=== PATIENT | male | born 1970 | race Caucasian/White ===

== ENCOUNTER 2017-07-31 06:36 | Day surgery (SDC) | payer MEDICARE ==
[2017-07-30 11:50] VITALS: BMI 38.2
[~2017-07-31 06:36] MED LIST: FLU VACC QS2017-18 36 mo. & older 0.5 ML SYRINGE IM ONE
[2017-07-31 08:03] VITALS: BP 142/90; TEMP 97.6
--- NOTE | 2017-07-31 08:54 | RAD ---
CERVICAL SPINE SERIES 4 VIEWS WITH FLEXION AND EXTENSION: HISTORY: Postop. FINDINGS: The patient has undergone anterior cervical fusion extending from C5 to C7 with plate and screws. Ma rkers of a disk implant are within the intervening disk levels. No abnormal motion is seen in flexio n or extension. IMPRESSION: Stable postop changes. POS: [facility]
--- NOTE | 2017-07-31 09:38 | RAD ---
CERVICAL MYELOGRAM: Date: 07/31/17 HISTORY: Cervical disc degeneration. COMPARISON: None. FLUORO TIME: 0.9 minutes. DOSE: 126.2 mGy*cm^2. 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 Disc prosthesis at C5-C6 and C6-C7 is noted. 2 view lumbar spine: Five lumbar-type vertebral bodies. Vertebral body height is maintained. There i s moderate loss of disc space height and vacuum disc phenomenon at L5-S1. Note, there are five lumbar -type vertebral bodies. There is partial sacralization of S1. Technically successful lumbar puncture for intrathecal contrast administration. A total of 9 mL Isovu e-300M contrast administered intrathecally. The patient tolerated the procedure well. No immediate or postprocedure complication. TECHNIQUE: Consent obtained for a lumbar puncture for cervical myelogram. The patient's back was evaluated. The L2-L3 level was deemed appropriate. Skin was prepped and draped in the sterile fashion. 1% lidocaine, buffered with sodium bicarbonate, was used for local anesthesia. Under fluoroscopic guidance, a 22 g auge spinal needle was advanced into the CSF space. Via a short tubing catheter, a total of 9 mL of I sovue-300M contrast was administered intrathecally. The patient tolerated the procedure well. No imme diate or postprocedure complication. IMPRESSION: Technically successful myelogram. POS: [facility]
--- NOTE | 2017-07-31 09:46 | CT ---
EXAM: CERVICAL SPINE MYELOGRAM CT: HISTORY: Cervical disk degeneration. Previous cervical fusion. COMPARISON: None. TECHNIQUE: Post myelogram cervical spine CT is performed in the axial plane. Reformatted images are submitted f or interpretation. FINDINGS: There is mild fullness of the left and right palatine tonsils, nonspecific. Visualized epiglottis is unremarkable. Preepiglottic fat is preserved. No prevertebral soft tissue swelling. Cervical spine vertebral body height is maintained. There is no fracture. Lateral masses of C1 and C2 articulate appropriate. Appropriate articulation of the facets. There is straightening of normal cervical lordosis. There is 1.3 mm of anterolisthesis of C3 upon C4. There are cervical fusion hardware changes at C5, C6, and C7. There are transvertebral body screws a t the aforementioned vertebral bodies. There are disk prostheses at C5-C6 and C6-C7. With regard to fusion hardware, no complication or loosening. C2-C3: No significant disk-osteophyte complex. No significant central canal stenosis. Neural benjamin en are patent. C3-C4: No significant disk-osteophyte complex. No significant central canal stenosis. Degenerative changes of bilateral uncovertebral joints result in moderate right and moderate to severe left benjamin inal narrowing. C4-5: Central disk-osteophyte complex abuts the thecal sac. Ventral subarachnoid space is maintaine d. Mild central canal stenosis. Bilaterally, the neural foramina are patent. C5-C6: Disk prosthesis I noted. There is a broad-based osteophyte ridge. There is near-complete ef facement of the thecal sac. Mild to moderate central canal stenosis. Degenerative change of bilater al uncovertebral joints results in severe bilateral neural foraminal narrowing. C6-C7: There is a disk prosthesis. There is a broad-based osteophyte ridge that abuts the thecal sa c. Mild central canal stenosis. Degenerative changes in bilateral uncovertebral joints result in se néstor bilateral neural foraminal narrowing. C7-T1: No significant disk-osteophyte complex. No significant central canal stenosis. Mild right a nd minimal left foraminal narrowing. IMPRESSION: Degenerative change of the cervical spine as detailed above. POS: [facility]
[2017-07-31] MEDS ORDERED: Iopamidol-M 300 61% 15 ML VIAL ONE (17:27)
== END 2017-07-31 10:10 | disposition home or self-care (01) ==
LOC: RAD 06:36
PROVIDERS: ATTEND Neurological Surgery
PROC: B00B1ZZ Plain Radiography of Spinal Cord using Low Osmolar Contrast (ICD-10-PCS; principal; 2017-07-31)
DX: M50.323 Other cervical disc degeneration at C6-C7 level (principal)
CPT/HCPCS: 62302; 72040; 72126

== ENCOUNTER 2019-10-24 13:56 | Inpatient (IN) | payer MEDICARE ==
[2019-10-24 16:24] VITALS: BMI 40.0
[2019-10-24] MEDS: Sodium Chloride 0.9% 1,000 ML IV SCH (17:27)
[2019-10-24] MEDS ORDERED: Ondansetron ODT 4 MG TAB PO PRN (20:26)
[2019-10-24] MEDS: Acetaminophen 325 MG TAB PO PRN (20:29)
[2019-10-24] MEDS: cefTRIAXone\\ROCEPHIN 2 GM in Sodium Chloride 0.9% 100 ML IVPB SCH (20:30)
[2019-10-24] MEDS: traMADol HCl 50 MG TAB PO PRN (20:30)
[2019-10-24] MEDS: Oseltamivir 75 MG CAP PO SCH (20:30)
[2019-10-24] MEDS ORDERED: Famotidine 20 MG TAB PO SCH (21:00)
[2019-10-24] MEDS ORDERED: Melatonin 3 MG TAB PO PRN (22:03)
[2019-10-24] MEDS: Azithromycin 500 MG in Sodium Chloride 0.9% 250 ML 250 ML IVPB SCH (22:06)
[2019-10-24] MEDS: Ondansetron PF 4 MG/2 ML Vial IVP PRN (22:56)
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
[2019-10-25] MEDS: Acetaminophen 325 MG TAB PO PRN ×2 (01:21→06:10)
[2019-10-25] MEDS: traMADol HCl 50 MG TAB PO PRN ×2 (01:21→06:10)
[2019-10-25] MEDS: Sodium Chloride 0.9% 1,000 ML IV SCH ×3 (06:10→20:39)
[2019-10-25] MEDS: Gemfibrozil 600 MG TAB PO SCH ×2 (06:59→16:41)
[2019-10-25] MEDS ORDERED: FLU VACC QS2019-20(6MOS UP)/PF 60 MCG/0.5 ML SYRINGE IM ONE (09:00)
[2019-10-25] MEDS: Enoxaparin Sodium 40 MG/0.4 ML SYRINGE SC SCH (09:39)
[2019-10-25] MEDS: Citalopram 20 MG TAB PO SCH (09:39)
[2019-10-25] MEDS: Oseltamivir 75 MG CAP PO SCH ×2 (09:39→20:46)
[2019-10-25] MEDS: Spironolactone 25 MG TAB PO SCH (09:39)
[2019-10-25] MEDS ORDERED: Ketorolac Tromethamine 30 MG/ML VIAL IVP PRN ×2 (11:35→11:38)
[2019-10-25] MEDS ORDERED: Metoprolol Tartrate 25 MG TAB PO SCH (11:45)
[2019-10-25 12:03] LABS: #Lymphocytes 1.5 thou/uL (1.20-3.40); #Monocytes 0.4 thou/uL (0.11-0.59); #Neutrophils 7.5 thou/uL (1.40-6.50); %Basophils 0.3 % (0.0-1.0); %Eosinophils 0.2 % (0.0-10.0); %Lymphocytes 15.7 % (21.0-51.0); %Monocytes 4.4 % (0.0-10.0); %Neutrophils 79.3 % (42.0-75.0); Mean Corpuscular HGB CONC 33.7 g/dL (32.0-36.0); Mean Corpuscular Hemoglobin 33.8 pg (27.0-31.0); Platelet Count 144 thou/uL (130-400); RBC Distribution Width 12.9 % (11.5-14.5); Red Blood Cell (RBC) Count 3.85 mill/uL (4.70-6.10); White Blood Cell (WBC) Count 9.4 thou/uL (4.8-10.8)
[2019-10-25 12:30] LABS: Anion Gap 15 mmol/L (10-20); BUN (Urea Nitrogen) 20 mg/dL (8.9-20.6); Calc. Creatinine Clearance 82 mL/min (70-130); Calcium 8.7 mg/dL (7.8-10.44); Carbon Dioxide 20 mmol/L (22-29); Chloride 107 mmol/L (98-107); Estimated GFR-MDRD 37; Glucose 120 mg/dL (70-105); Potassium 3.3 mmol/L (3.5-5.1); Sodium 139 mmol/L (136-145)
[2019-10-25] MEDS: Ondansetron PF 4 MG/2 ML Vial IVP PRN ×2 (12:31→23:08)
[2019-10-25] MEDS: cefTRIAXone\\ROCEPHIN 2 GM in Sodium Chloride 0.9% 100 ML IVPB SCH (20:39)
[2019-10-25] MEDS: Azithromycin 500 MG in Sodium Chloride 0.9% 250 ML 250 ML IVPB SCH (20:40)
[2019-10-25] MEDS: Metoprolol Tartrate 25 MG TAB PO SCH (20:45)
--- NOTE | 2019-10-25 22:44 | PDOC.HOSPP ---
- Subjective Encounter Date: 10/25/19 Subjective: Says he hurts all over. Requests something for pain. Still cannot tell me his meds. - Objective Vital Signs & Weight: Vital Signs (12 hours) Temp Pulse Resp BP Pulse Ox 10/25/19 20:00 99.6 F 88 16 115/71 92 L 10/25/19 16:00 92 L 10/25/19 15:08 98.9 F 96 20 145/77 H 92 L 10/25/19 12:00 91 L 10/25/19 11:23 91 L 10/25/19 11:02 98.2 F 108 H 20 125/63 91 L Weight Admit Weight 279 lb 4 oz Weight 279 lb 4 oz I&O: 10/24/19 10/25/19 10/26/19 06:59 06:59 06:59 Intake Total 4240 2019 Output Total 450 Balance 3790 2019 Result Diagrams: 10/25/19 11:51 10/25/19 11:51 Hospitalist ROS - Medication Medications: Active Medications Generic Name Dose Route Start Last Admin Trade Name Freq PRN Reason Stop Dose Admin Acetaminophen 650 mg 10/24/19 16:27 10/25/19 06:10 Tylenol PO 650 mg Q4H PRN Administration Headache/Fever/Mild Pain (1-3) Citalopram Hydrobromide 40 mg 10/25/19 09:00 10/25/19 09:39 Celexa PO 40 mg DAILY CAITLYN Administration Enoxaparin Sodium 40 mg 10/25/19 09:00 10/25/19 09:39 Lovenox SC 40 mg 0900 CAITLYN Administration Gemfibrozil 600 mg 10/25/19 07:30 10/25/19 16:41 Lopid PO 600 mg BID-AC CAITLYN Administration Sodium Chloride 1,000 mls @ 100 mls/hr 10/24/19 16:30 10/25/19 20:39 Normal Saline 0.9% IV 1,000 mls .Q10H CAITLYN Administration Azithromycin 500 mg/ Sodium 250 mls @ 250 mls/hr 10/24/19 21:00 10/25/19 20: 40 Chloride IVPB 250 mls Q24HR CAITLYN Administration Ceftriaxone Sodium 2 gm/ 100 mls @ 200 mls/hr 10/24/19 20:00 10/25/19 20:39 Sodium Chloride IVPB 100 mls Q24HR CAITLYN Administration Ketorolac Tromethamine 15 mg 10/25/19 11:38 10/25/19 12:31 Toradol IVP 15 mg Q8H PRN Administration Pain Melatonin 3 mg 10/24/19 22:03 10/24/19 22:53 Melatonin PO 3 mg HS PRN Administration Insomnia Metoprolol Tartrate 25 mg 10/25/19 21:00 10/25/19 20:45 Lopressor PO 25 mg BID CAITLYN Administration Ondansetron HCl 4 mg 10/24/19 20:26 10/25/19 12:31 Zofran IVP 4 mg Q6H PRN Administration Nausea/Vomiting Oseltamivir Phosphate 75 mg 10/24/19 21:00 10/25/19 20:46 Tamiflu PO 10/29/19 09:01 75 mg BID CAITLYN Administration Pantoprazole Sodium 40 mg 10/25/19 09:00 10/25/19 09:39 Protonix PO 40 mg DAILY CAITLYN Administration Spironolactone 25 mg 10/25/19 08:00 10/25/19 09:39 Aldactone PO 25 mg QAM-WM CAITLYN Administration Tramadol HCl 50 mg 10/24/19 19:03 10/25/19 06:10 Ultram PO 50 mg Q4H PRN Administration Pain 4-6 - Exam General Appearance: NAD General - other findings: Obese. Heart: RRR, no murmur, no gallops, no rubs, normal peripheral pulses Respiratory: CTAB, no wheezes, no rales, no ronchi, normal chest expansion, no tachypnea, normal percussion Gastrointestinal: soft, non-tender, non-distended, normal bowel sounds, no palpable masses, no hepatomegaly, no splenomegaly, no bruit Extremities: no cyanosis, no clubbing, no edema Musculoskeletal: normal tone Psychiatric: somnolent Hosp A/P (1) Sepsis Code(s): A41.9 - SEPSIS, UNSPECIFIED ORGANISM Status: Acute (2) Pneumonia Code(s): J18.9 - PNEUMONIA, UNSPECIFIED ORGANISM Status: Acute (3) Influenza A Code(s): J10.1 - FLU DUE TO OTH IDENT INFLUENZA VIRUS W OTH RESP MANIFEST Status: Acute (4) Hx of traumatic brain injury Code(s): Z87.820 - PERSONAL HISTORY OF TRAUMATIC BRAIN INJURY Status: Acute (5) HTN (hypertension) Code(s): I10 - ESSENTIAL (PRIMARY) HYPERTENSION Status: Acute (6) Acute on chronic kidney failure Code(s): N17.9 - ACUTE KIDNEY FAILURE, UNSPECIFIED; N18.9 - CHRONIC KIDNEY DISEASE, UNSPECIFIED Status: Acute - Plan Continue IV abx. Conintue po Tamiflu. Recheck renal function. Continue IVF. Will add some Toradol 15 mg IV q 8 hr x 3 prn. Will resume his home meds. Limited doses today.
[2019-10-25] MEDS ORDERED: tiZANidine HCl 4 MG TAB PO PRN (22:50)
[2019-10-26] MEDS: Acetaminophen/Codeine 30-300mg Tablet PO PRN ×2 (03:31→10:22)
[2019-10-26] MEDS: Gemfibrozil 600 MG TAB PO SCH (06:56)
[2019-10-26 07:49] VITALS: TEMP 99.2
[2019-10-26] MEDS ORDERED: predniSONE 20 MG TAB PO SCH (08:00)
[2019-10-26] MEDS ORDERED: Potassium Chloride 20 MEQ TAB PO SCH (09:00)
[2019-10-26] MEDS ORDERED: cloNIDine 0.1 MG TAB PO SCH (09:00)
[2019-10-26] MEDS: Enoxaparin Sodium 40 MG/0.4 ML SYRINGE SC SCH (09:03)
[2019-10-26] MEDS: Oseltamivir 75 MG CAP PO SCH (09:03)
[2019-10-26] MEDS: Citalopram 20 MG TAB PO SCH (09:04)
[2019-10-26] MEDS: Spironolactone 25 MG TAB PO SCH (09:04)
[2019-10-26] MEDS: Metoprolol Tartrate 25 MG TAB PO SCH (09:04)
--- NOTE | 2019-10-26 11:51 | PDOC.HOSPP ---
- Subjective Encounter Date: 10/26/19 Encounter Time: 09:15 Subjective: Patient seen and examined. No new complaints. No overnight events - Objective Vital Signs & Weight: Vital Signs (12 hours) Temp Pulse Resp BP BP Pulse Ox 10/26/19 10:54 99.2 F 93 20 147/70 H 92 L 10/26/19 09:03 135/83 10/26/19 08:00 94 L 10/26/19 07:46 99.2 F 96 20 135/83 90 L 10/26/19 07:38 92 L 10/26/19 03:33 99.8 F H 90 18 133/80 92 L 10/26/19 01:03 99.9 F H 90 18 132/82 92 L Weight Admit Weight 279 lb 4 oz Weight 279 lb 4 oz I&O: 10/25/19 10/26/19 10/27/19 06:59 06:59 06:59 Intake Total 4240 4530 Output Total 450 Balance 3790 4530 Result Diagrams: 10/25/19 11:51 10/25/19 11:51 Radiology Reviewed by me: Yes Hospitalist ROS - Review of Systems ENT: denies: ear pain, ear discharge, nose pain, nose discharge, nose congestion , mouth pain, mouth swelling, throat pain, throat swelling, other Respiratory: denies: cough, dry, shortness of breath, hemoptysis, SOB with excertion, pleuritic pain, sputum, wheezing, other Cardiovascular: denies: chest pain, palpitations, orthopnea, paroxysmal noc. dyspnea, edema, light headedness, other Gastrointestinal: denies: nausea, vomiting, abdominal pain, diarrhea, constipation, melena, hematochezia, other Genitourinary: denies: dysuria, frequency, incontinence, hematuria, retention, other Musculoskeletal: denies: neck pain, shoulder pain, arm pain, back pain, hand pain, leg pain, foot pain, other - Medication Medications: Active Medications Generic Name Dose Route Start Last Admin Trade Name Freq PRN Reason Stop Dose Admin Acetaminophen 650 mg 10/24/19 16:27 10/25/19 06:10 Tylenol PO 650 mg Q4H PRN Administration Headache/Fever/Mild Pain (1-3) Acetaminophen/Codeine Phosphate 2 tab 10/25/19 22:50 10/26/19 10:22 Tylenol #3 PO 2 tab Q6HR PRN Administration Moderate Pain (4-6) Citalopram Hydrobromide 40 mg 10/25/19 09:00 10/26/19 09:04 Celexa PO 40 mg DAILY CAITLYN Administration Clonidine 0.1 mg 10/26/19 09:00 10/26/19 09:03 Catapres PO 0.1 mg BID CAITLYN Administration Enoxaparin Sodium 40 mg 10/25/19 09:00 10/26/19 09:03 Lovenox SC 40 mg 0900 CAITLYN Administration Gemfibrozil 600 mg 10/25/19 07:30 10/26/19 06:56 Lopid PO 600 mg BID-AC CAITLYN Administration Sodium Chloride 1,000 mls @ 100 mls/hr 10/24/19 16:30 10/25/19 20:39 Normal Saline 0.9% IV 1,000 mls .Q10H CAITLYN Administration Azithromycin 500 mg/ Sodium 250 mls @ 250 mls/hr 10/24/19 21:00 10/25/19 20: 40 Chloride IVPB 250 mls Q24HR CAITLYN Administration Ceftriaxone Sodium 2 gm/ 100 mls @ 200 mls/hr 10/24/19 20:00 10/25/19 20:39 Sodium Chloride IVPB 100 mls Q24HR CAITLYN Administration Ketorolac Tromethamine 15 mg 10/25/19 11:38 10/25/19 12:31 Toradol IVP 15 mg Q8H PRN Administration Pain Melatonin 3 mg 10/24/19 22:03 10/24/19 22:53 Melatonin PO 3 mg HS PRN Administration Insomnia Metoprolol Tartrate 25 mg 10/25/19 21:00 10/26/19 09:04 Lopressor PO 25 mg BID CAITLYN Administration Ondansetron HCl 4 mg 10/24/19 20:26 10/25/19 23:08 Zofran IVP 4 mg Q6H PRN Administration Nausea/Vomiting Oseltamivir Phosphate 75 mg 10/24/19 21:00 10/26/19 09:03 Tamiflu PO 10/29/19 09:01 75 mg BID CAITLYN Administration Pantoprazole Sodium 40 mg 10/25/19 09:00 10/26/19 09:04 Protonix PO 40 mg DAILY CAITLYN Administration Potassium Chloride 20 meq 10/26/19 09:00 10/26/19 09:04 K-Dur PO 20 meq BID CAITLYN Administration Prednisone 20 mg 10/26/19 08:00 10/26/19 09:04 Prednisone PO 20 mg QAM-WM CAITLYN Administration Spironolactone 25 mg 10/25/19 08:00 10/26/19 09:04 Aldactone PO 25 mg QAM-WM CAITLYN Administration Tramadol HCl 50 mg 10/24/19 19:03 10/25/19 06:10 Ultram PO 50 mg Q4H PRN Administration Pain 4-6 - Exam General Appearance: NAD, awake alert Eye: PERRL, anicteric sclera ENT: normocephalic atraumatic, no oropharyngeal lesions Neck: supple, symmetric, no JVD, no thyromegaly Heart: RRR, no murmur, no gallops, no rubs Respiratory: CTAB, no wheezes, no rales, no ronchi Gastrointestinal: soft, non-tender, non-distended, normal bowel sounds Extremities: no cyanosis, no clubbing, no edema Skin: normal turgor, no lesions, no rashes Neurological: no focal deficits Musculoskeletal: normal tone, normal strength Psychiatric: normal affect, normal behavior Hosp A/P (1) Acute on chronic kidney failure Code(s): N17.9 - ACUTE KIDNEY FAILURE, UNSPECIFIED; N18.9 - CHRONIC KIDNEY DISEASE, UNSPECIFIED Status: Acute (2) HTN (hypertension) Code(s): I10 - ESSENTIAL (PRIMARY) HYPERTENSION Status: Acute (3) Hx of traumatic brain injury Code(s): Z87.820 - PERSONAL HISTORY OF TRAUMATIC BRAIN INJURY Status: Acute (4) Influenza A Code(s): J10.1 - FLU DUE TO OTH IDENT INFLUENZA VIRUS W OTH RESP MANIFEST Status: Acute (5) Pneumonia Code(s): J18.9 - PNEUMONIA, UNSPECIFIED ORGANISM Status: Acute (6) Sepsis Code(s): A41.9 - SEPSIS, UNSPECIFIED ORGANISM Status: Acute (7) Acute respiratory failure with hypoxia Code(s): J96.01 - ACUTE RESPIRATORY FAILURE WITH HYPOXIA Status: Resolved - Plan old records reviewed/req will dc today see discharge destini
[2019-10-26 13:19] VITALS: BP 147/70
--- NOTE | 2019-10-26 13:38 | DIS ---
DATE OF ADMISSION: 10/24/2019 DATE OF DISCHARGE: 10/26/2019 PRIMARY CARE PHYSICIAN: Hugh Wei MD. DISCHARGE DISPOSITION: Home. PRIMARY DISCHARGE DIAGNOSES: 1. Sepsis due to pneumonia. 2. Pneumonia after influenza. 3. Acute respiratory failure with hypoxia on admission. 4. Pneumonia due to community-acquired with flu illness. SECONDARY DISCHARGE DIAGNOSES: Morbid obesity with BMI of 40, hypertension, anxiety, depression, migraine headache, chronic low back pain, gastroesophageal reflux disease, dyslipidemia. PRIMARY PROCEDURE/OPERATION: None. RADIOLOGICAL INVESTIGATION: The patient had radiological investigation done at [facility]. SIGNIFICANT LABORATORY DATA: WBC 9.4, hemoglobin 13.0, platelet 144. Sodium 139, potassium 3.3, BUN 20, creatinine 1.92, calcium 8.7. DISCHARGE MEDICATIONS: 1. Tamiflu 75 mg p.o. b.i.d. for 3 days. 2. Omnicef 300 mg p.o. b.i.d. for 7 days. 3. Aldactone 25 mg p.o. daily. 4. Prednisone 20 mg p.o. daily. 5. Potassium chloride 20 mEq p.o. b.i.d. 6. Protonix 40 mg p.o. b.i.d. 7. Metoprolol 100 mg p.o. b.i.d. 8. Cozaar 100 mg daily. 9. Hydralazine 50 mg b.i.d. 10. Lopid 600 mg p.o. b.i.d. 11. Clonidine 0.1 mg p.o. daily. 12. Flonase nasal spray daily. 13. Celexa 40 mg p.o. daily. 14. Amlodipine 10 mg p.o. daily. CONTRAINDICATION: None. CODE STATUS: Full code. INPATIENT BOTTLE LABELER: None. ALLERGIES: NO KNOWN DRUG ALLERGIES. DISCHARGE PLAN: Posthospital, the patient will follow up with primary care physician and he will need repeat chest x-ray upon followup visit. HOSPITAL COURSE: A 49-year-old male who went to [facility] where he was found with hypoxia and he had positive influenza A. He was transferred to our hospital for further treatment. He was admitted to medical floor. He was treated with oxygen, empiric antibiotic therapy with Rocephin and azithromycin. While in hospital with aggressive medical therapy, his condition unexpectedly rapidly improved. He was no longer requiring oxygen by the time of discharge. He was given Tamiflu to finish course of treatment and his antibiotic therapy changed to Omnicef for 7 days. He will need repeat chest x-ray upon followup visit. The patient is seen and examined at bedside today. Please see my progress note from today for further detail. He is exceptionally doing very well surprisingly during this admission. Job ID: [id number]
== END 2019-10-26 12:40 | disposition home or self-care (01) | DRG 871 ==
LOC: SURG A 15:30
PROVIDERS: ADMIT Internal Medicine; ATTEND Internal Medicine
DX: A41.9 Sepsis, unspecified organism (principal); J96.01 Acute respiratory failure with hypoxia; J10.00 Influenza due to other identified influenza virus with unspecified type of pneumonia; N17.9 Acute kidney failure, unspecified; Z68.41 Body mass index [BMI] 40.0-44.9, adult; N18.3 Chronic kidney disease, stage 3 (moderate); G47.33 Obstructive sleep apnea (adult) (pediatric); F41.9 Anxiety disorder, unspecified; F32.9 Major depressive disorder, single episode, unspecified; K21.9 Gastro-esophageal reflux disease without esophagitis; E78.5 Hyperlipidemia, unspecified; M54.5 Low back pain; G89.29 Other chronic pain; E66.01 Morbid (severe) obesity due to excess calories; G43.909 Migraine, unspecified, not intractable, without status migrainosus; I12.9 Hypertensive chronic kidney disease with stage 1 through stage 4 chronic kidney disease, or unspecified chronic kidney disease; Z79.899 Other long term (current) drug therapy; Z87.820 Personal history of traumatic brain injury
CPT/HCPCS: 36415; 80048; 85025; 90471; 90686; G0008; J0456; J0696; J1650; J1885; J2405; J3490; J7050; J7512

== ENCOUNTER 2020-06-22 12:39 | Outpatient (CLI) | payer MEDICARE ==
--- NOTE | 2020-06-22 13:44 | RAD ---
CERVICAL SPINE SERIES: Date: 06/22/2020 HISTORY: Neck pain. COMPARISON: 07/31/2017 study. FINDINGS: The patient has undergone anterior cervical fusion with placement of plate and screws extending from C5 to C7. Markers of disc implants are within the confines of the disc levels. IMPRESSION: Postop changes of the spine are stable. POS: [facility]
== END 2020-06-22 12:40 | disposition home or self-care (01) ==
LOC: SCSRAD 12:39
PROVIDERS: ATTEND Psychiatry & Neurology Neurology
DX: G43.019 Migraine without aura, intractable, without status migrainosus (principal); Z98.1 Arthrodesis status
CPT/HCPCS: 72040